=== PATIENT | male | born 1980 | race Caucasian/White ===

== ENCOUNTER 2017-03-24 18:04 | Emergency (ER) | payer MEDICAID ==
[~2017-03-24] VITALS: Ht 188 cm; Wt 76.7 kg
[~2017-03-24 18:04] MED LIST: ALPR0.5T PO; DIVA500T4 PO
[2017-03-24 18:40] VITALS: BP 113/67
== END 2017-03-24 20:00 | disposition home or self-care (01) ==
LOC: ER 18:14
DX: H00.014 Hordeolum externum left upper eyelid (principal); J45.909 Unspecified asthma, uncomplicated; F17.210 Nicotine dependence, cigarettes, uncomplicated; F12.10 Cannabis abuse, uncomplicated; Z88.1 Allergy status to other antibiotic agents; Z79.899 Other long term (current) drug therapy

== ENCOUNTER 2017-05-19 18:13 | Emergency (ER) | payer MEDICAID ==
[~2017-05-19] VITALS: Ht 188 cm; Wt 81.6 kg
[2017-05-19 18:35] VITALS: BP 113/61
[2017-05-20] MEDS ORDERED: ESMOLOL HCL-NS 10MG/ML 250 ML IV ONE (03:40)
== END 2017-05-20 02:21 | disposition home or self-care (01) ==
LOC: ER 18:15
DX: S90.32XA Contusion of left foot, initial encounter (principal); L05.91 Pilonidal cyst without abscess; J45.909 Unspecified asthma, uncomplicated; F17.210 Nicotine dependence, cigarettes, uncomplicated; Z88.1 Allergy status to other antibiotic agents; Z79.899 Other long term (current) drug therapy; W18.39XA Other fall on same level, initial encounter; Y93.89 Activity, other specified; Y92.89 Other specified places as the place of occurrence of the external cause; Y99.8 Other external cause status
CPT/HCPCS: 73620; 99284; J3490; L3260